=== PATIENT | male | born 1960 | race Caucasian/White ===

== ENCOUNTER 2016-06-12 21:53 | Observation (INO) ==
[2016-06-12] MEDS ORDERED: *HR* HYDROmorphone (PF) 1 MG/ML SYRINGE IVP ONE (23:18)
[2016-06-12] MEDS ORDERED: Ondansetron 4 MG/2 ML VIAL IVP ONE (23:18)
[2016-06-12 23:44] LABS: Eosinophils % 0.3 %; Hematocrit 40.5 % (37.5-50.1); Hemoglobin 14.2 g/dL (12.9-16.9); Immature Granulocytes % 0.3 % (0-4); Immature Platelets 1.2 % (1.1-6.1); Lymphocytes # 0.3 K/mcL (0.6-4.6); Lymphocytes % 5.4 %; Mean Corpuscular HGB Conc 35.1 g/dL (31.6-35.5); Mean Corpuscular Hemoglobin 29.8 pg (28.0-33.3); Mean Corpuscular Volume 84.9 fL (83.0-100.0); Mean Platelet Volume 8.5 fL (9.4-12.4); Monocytes # 0.4 K/mcL (0.0-1.3); Monocytes % 5.6 %; Neutrophils # 5.5 K/mcL (1.6-8.9); Platelet Count 203 K/mcL (140-400); Red Blood Count 4.77 M/mcL (4.19-5.50); Red Cell Distribution Width 12.4 % (11.5-14.5); Segmented Neutrophils % 88.4 %
[2016-06-12 23:58] LABS: Alanine Aminotransferase 391 Units/L (0-55); Albumin 4.3 g/dL (3.5-5.0); Albumin/Globulin Ratio 1.5 (1.1-2.2); Alkaline Phosphatase 97 Units/L (38-126); Aspartate Amino Transferase 340 Units/L (5-34); BUN/Creatinine Ratio 12 (6-26); Bilirubin,Direct 1.5 mg/dL (0.0-0.5); Bilirubin,Indirect 0.8 mg/dL (0.0-1.2); Bilirubin,Total 2.3 mg/dL (0.2-1.2); Blood Urea Nitrogen 14 mg/dL (8-26); Calcium 9.3 mg/dL (8.6-10.8); Carbon Dioxide 24 mEq/L (19-29); Chloride 103 mEq/L (98-109); Globulin 2.8 g/dL (2.4-3.5); Glucose 139 mg/dL (70-99); Lipase 28 Units/L (8-78); Osmolality,Calculated 287 (280-300); Potassium 4.1 mEq/L (3.5-4.5); Sodium 137 mEq/L (136-145); Total Protein 7.1 g/dL (6.0-8.3); eGFR For African Americans > 60 (> 60); eGFR For Non-African Americans > 60 (> 60)
[2016-06-13 00:37] LABS: Bilirubin,Urine Small (Negative); Clarity,Urine Cloudy (Clear); Color,Urine Orange (Yellow); Glucose,Urine (UA) Normal (Normal); Ketones,Urine Trace mg/dL (Negative)
[2016-06-13 00:38] LABS: Blood,Urine Large (Negative); Leukocyte Esterase,Urine Trace (Negative); Nitrite,Urine Negative (Negative); PH,Urine 5.5 pH Units (5.0-8.0); Protein,Urine 30 mg/dL (Neg-Trace); Urobilinogen,Urine Normal (Normal)
[2016-06-13 00:57] LABS: Bacteria,Urine None Seen per hpf (None-Few); Hyaline Casts,Urine None Seen per lpf (None-Few); RBC,Urine 15-30 per hpf (0-3); Squamous Epithelial Cell,Urine None Seen per lpf (None-Few); WBC,Urine 0-3 per hpf (0-3)
[2016-06-13] MEDS ORDERED: Piperacillin/Tazobactam 3.375 GM in D5% in Water (Mini-Bag+) 100 ML IVPB ONE (01:32)
--- NOTE | 2016-06-13 01:39 | Emergency Department Note ---
Disposition Clinical Impression: Acute cholecystitis Disposition: Admitted As Inpatient Condition: Good Time of Disposition: 01:46 Abdominal Pain HPI - General Chief Complaint: ED Abdominal Pain Stated Complaint: abd pain Time Seen by Provider: 06/12/16 22:35 Source: patient Mode of arrival: ambulatory Nursing Notes Reviewed: Yes Vital Signs Reviewed: Yes - History of Present Illness HPI Narrative: Patient here for evaluation of abdominal pain that started approximately 7 hours prior to arrival. Patient describes the sensation of distention as well as right upper quadrant pain. Patient states that he has never had anything like this before. Was recently seen by primary care and placed on ranitidine because he had been having GI issues. Patient says that he has known gallstones but has never had any issues with them before. Pain Scale: 9 - Related Data Home Medications Medication Instructions Recorded Confirmed Levothyroxine Sodium [Levoxyl] 150 mcg PO DAILY 06/12/16 06/12/16 Ranitidine HCl [Zantac] 150 mg PO BID 06/12/16 06/12/16 Allergies Allergy/AdvReac Type Severity Reaction Status Date / Time No Known Allergies Allergy Verified 06/12/16 22:21 All systems ED: reviewed and negative except as stated. Constitutional: Denies: fever, chills, weakness Cardiovascular: Denies: chest pain Gastrointestinal: Reports: abdominal pain, nausea. Denies: vomiting Abdominal Pain PMH - Past Medical History Medical history: Reports: GERD, thyroid disease Male Surgical History: Reports: no surgical history - Social History Smoking status: Never smoker Alcohol use: Reports: none Drug use: Reports: none Physical Exam - General Limitations: no limitations General appearance: alert - Head Head exam: atraumatic, normocephalic, normal inspection - Eye Eye exam: Present: normal appearance - ENT ENT exam: normal exam, normal oropharynx - Neck Neck exam: Present: normal inspection - Chest Chest inspection: Present: normal inspection, symmetric chest wall rise - Respiratory Respiratory exam: Present: normal lung sounds bilaterally. Absent: respiratory distress, wheezes - Cardiovascular Cardiovascular exam: Present: regular rate, normal rhythm - Abdominal Exam Abdominal exam: Present: tenderness, distention, hypoactive bowel sounds Abdominal tenderness: Present: RUQ, moderate - Extremities Exam Extremities exam: Present: normal inspection. Absent: tenderness - Back Exam Back exam: Present: normal inspection - Neurological Exam Neurological exam: Present: alert, oriented X3 - Psychiatric Psychiatric exam: Present: normal affect, normal mood - Skin Skin exam: Present: warm, dry, intact Course - Reevaluation(s) Reevaluation #1: Patient with elevated liver enzymes as well as bilirubin. CT scan consistent with acute cholecystitis. There is concern for choledocholithiasis versus adjacent calcifications. No dilation of the CBD. - Consultations Consultation #1: Discussed with Dr. Farmer. Patient accepted for admission. Vital Signs Temperature 98.1 F 06/12/16 22:21 Pulse Rate 76 06/12/16 22:21 Respiratory Rate 18 06/12/16 22:21 Blood Pressure 127/77 06/12/16 22:21 O2 Sat by Pulse Oximetry 99 06/12/16 22:21 Temperature 98.1 F 06/12/16 22:21 Pulse Rate 76 06/12/16 22:21 Respiratory Rate 18 06/13/16 04:00 Blood Pressure 113/69 06/13/16 04:00 O2 Sat by Pulse Oximetry 100 06/13/16 04:33 Oxygen Delivery Oxygen Delivery Room Air Abdominal Pain - Lab Data Result diagrams: 06/12/16 23:38 06/12/16 23:38 Lab Results 06/12/16 06/12/16 06/12/16 Range/Units 23:38 23:38 23:40 WBC 6.2 (4.3-11.1) K/mcL RBC 4.77 (4.19-5.50) M/mcL Hgb 14.2 (12.9-16.9) g/dL Hct 40.5 (37.5-50.1) % MCV 84.9 (83.0-100.0) fL MCH 29.8 (28.0-33.3) pg MCHC 35.1 (31.6-35.5) g/dL RDW 12.4 (11.5-14.5) % Plt Count 203 (140-400) K/mcL MPV 8.5 L (9.4-12.4) fL Immature Gran % 0.3 (0-4) % Seg Neutrophils % 88.4 % Lymphocytes % 5.4 % Monocytes % 5.6 % Eosinophils % 0.3 % Basophils % 0.0 % Neutrophils # 5.5 (1.6-8.9) K/mcL Lymphocytes # 0.3 L (0.6-4.6) K/mcL Monocytes # 0.4 (0.0-1.3) K/mcL Eosinophils # 0.0 (0.0-0.6) K/mcL Basophils # 0.0 (0.0-0.2) K/mcL Immature Plt Fraction 1.2 (1.1-6.1) % Sodium 137 (136-145) mEq/L Potassium 4.1 (3.5-4.5) mEq/L Chloride 103 (98-109) mEq/L Carbon Dioxide 24 (19-29) mEq/L BUN 14 (8-26) mg/dL Creatinine 1.13 (0.72-1.25) mg/dL Est GFR ( Amer) > 60 (> 60) Est GFR (Non-Af Amer) > 60 (> 60) BUN/Creatinine Ratio 12 (6-26) Glucose 139 H (70-99) mg/dL Calculated Osmolality 287 (280-300) Calcium 9.3 (8.6-10.8) mg/dL Total Bilirubin 2.3 H (0.2-1.2) mg/dL Direct Bilirubin 1.5 H (0.0-0.5) mg/dL Indirect Bilirubin 0.8 (0.0-1.2) mg/dL AST 340 H (5-34) Units/L ALT 391 H (0-55) Units/L Alkaline Phosphatase 97 (38-126) Units/L Serum Total Protein 7.1 (6.0-8.3) g/dL Albumin 4.3 (3.5-5.0) g/dL Globulin 2.8 (2.4-3.5) g/dL Albumin/Globulin Ratio 1.5 (1.1-2.2) Lipase 28 (8-78) Units/L Urine Color [place] A (Yellow) Urine Clarity Cloudy A (Clear) Urine pH 5.5 (5.0-8.0) pH Units Ur Specific [place] 1.030 H (1.010-1.025) Urine Protein 30 H (Neg-Trace) mg/dL Urine Glucose (UA) Normal (Normal) mg/dL Urine Ketones Trace H (Negative) mg/dL Urine Blood Large H (Negative) Urine Nitrite Negative (Negative) Urine Bilirubin Small H (Negative) Urine Urobilinogen Normal (Normal) mg/dL Ur Leukocyte Esterase Trace H (Negative) Urine Microscopic RBC 15-30 H (0-3) per hpf Urine Microscopic WBC 0-3 (0-3) per hpf Ur Squamous Epith Cells None Seen (None-Few) per lpf Urine Bacteria None Seen (None-Few) per hpf Hyaline Casts None Seen (None-Few) per lpf Ur Culture Indicated? YES A (NO) Attestation Statement - Attestation Attestation: For this encounter, I have reviewed the resident, SWITCHBOX ASSEMBLER, or PA documentation, treatment plan, and medical decision making; and I have had face to face time with this patient. 55-year-old male presents with concerns of right upper quadrant pain. Patient states he has a history of similar symptoms over the past 2-3 months. Patient notices that the pain is worse after fatty meals. Patient has been following his primary care provider up until this point who recommended refraining from fatty meals. Patient had [place] toast and helton tonight prior to the onset of this symptoms. Patient states his symptoms have been significantly worse than they have been over the past few months. Patient denies fever, diarrhea, rash, chest pain, shortness of breath. CT of the abdomen shows evidence of acute cholecystitis. Patient has elevation of his LFTs. Patient admitted to the general surgeon for continuation of his care. Patient comfortable with the plan for admission to hospital. Pt pain was controlled prior to leaving the emergency department.
[2016-06-13] MEDS ORDERED: Naloxone 0.4 MG/ML INJ IVP PRN (04:10)
[2016-06-13] MEDS ORDERED: Ondansetron 4 MG/2 ML VIAL IVP PRN (04:10)
[2016-06-13] MEDS ORDERED: *HR* Promethazine 25 MG/ML VIAL IVP PRN (04:10)
[2016-06-13] MEDS ORDERED: *HR* Morphine 2 MG/ML SYRINGE IVP PRN (04:10)
[2016-06-13] MEDS ORDERED: *HR* Metoprolol 5 MG/5 ML VIAL IVP PRN (04:10)
[2016-06-13 08:04] LABS: Alanine Aminotransferase 633 Units/L (0-55); Albumin 3.8 g/dL (3.5-5.0); Albumin/Globulin Ratio 1.4 (1.1-2.2); Alkaline Phosphatase 105 Units/L (38-126); Aspartate Amino Transferase 507 Units/L (5-34); BUN/Creatinine Ratio 14 (6-26); Bilirubin,Direct 1.4 mg/dL (0.0-0.5); Bilirubin,Indirect 1.4 mg/dL (0.0-1.2); Bilirubin,Total 2.8 mg/dL (0.2-1.2); Blood Urea Nitrogen 12 mg/dL (8-26); Calcium 8.7 mg/dL (8.6-10.8); Carbon Dioxide 22 mEq/L (19-29); Chloride 105 mEq/L (98-109); Globulin 2.7 g/dL (2.4-3.5); Glucose 110 mg/dL (70-99); Osmolality,Calculated 290 (280-300); Potassium 4.3 mEq/L (3.5-4.5); Sodium 140 mEq/L (136-145); Total Protein 6.5 g/dL (6.0-8.3); eGFR For African Americans > 60 (> 60); eGFR For Non-African Americans > 60 (> 60)
[2016-06-13] MEDS: ceFAZolin 2,000 MG in D5% in Water 100 ML IVPB SCH ×2 (08:14→16:40)
[2016-06-13] MEDS: 0.9 % Sodium Chloride 1,000 ML IVC SCH ×2 (08:18→16:18)
[2016-06-13] MEDS ORDERED: Ketorolac 15 MG/ML VIAL IVP ONE (08:19)
[2016-06-13 09:01] LABS: Basophils % 0.2 %; Eosinophils # 0.1 K/mcL (0.0-0.6); Eosinophils % 0.9 %; Hemoglobin 13.6 g/dL (12.9-16.9); Immature Granulocytes % 0.2 % (0-4); Immature Platelets 1.4 % (1.1-6.1); Lymphocytes # 0.7 K/mcL (0.6-4.6); Mean Corpuscular HGB Conc 34.9 g/dL (31.6-35.5); Mean Corpuscular Hemoglobin 29.5 pg (28.0-33.3); Mean Corpuscular Volume 84.6 fL (83.0-100.0); Mean Platelet Volume 8.5 fL (9.4-12.4); Monocytes # 0.4 K/mcL (0.0-1.3); Monocytes % 8.3 %; Neutrophils # 4.1 K/mcL (1.6-8.9); Platelet Count 200 K/mcL (140-400); Red Blood Count 4.61 M/mcL (4.19-5.50); Red Cell Distribution Width 12.6 % (11.5-14.5); Segmented Neutrophils % 77.4 %
--- NOTE | 2016-06-13 09:14 | General Surg History&Physical ---
<Cortney Goldberg - Last Filed: 06/13/16 13:27> Date of Encounter: 06/13/16 Time of Encounter: 08:45 Assessment and Plan (1) Acute cholecystitis Current Visit: Yes Status: Acute The assessment and plan as outlined above was discussed with the patient and/or family members who expressed understanding and agreement. All questions were answered. NPO with IV fluids IV antibiotics- Ancef Supportive care/pain control Incentive Spirometer every 1 hour while awake Ambulate hallways MRCP today am labs (2) Hyperbilirubinemia Current Visit: Yes Status: Acute The assessment and plan as outlined above was discussed with the patient and/or family members who expressed understanding and agreement. All questions were answered. MRCP today am labs consult gastroenterology (3) Elevated liver enzymes Current Visit: Yes Status: Acute The assessment and plan as outlined above was discussed with the patient and/or family members who expressed understanding and agreement. All questions were answered. Hepatitis panel pending MRCP today am labs consult gastroenterology (4) GERD (gastroesophageal reflux disease) Current Visit: Yes Status: Chronic The assessment and plan as outlined above was discussed with the patient and/or family members who expressed understanding and agreement. All questions were answered. PPI therapy daily Qualifiers: Esophagitis presence: esophagitis presence not specified Qualified Code(s) : K21.9 - Gastro-esophageal reflux disease without esophagitis (5) Hypothyroidism Current Visit: Yes Status: Chronic The assessment and plan as outlined above was discussed with the patient and/or family members who expressed understanding and agreement. All questions were answered. Continue daily synthroid Qualifiers: Hypothyroidism type: unspecified Qualified Code(s): E03.9 - Hypothyroidism , unspecified (6) Kidney stone Current Visit: Yes Status: Acute The assessment and plan as outlined above was discussed with the patient and/or family members who expressed understanding and agreement. All questions were answered. Patient states that he passed a kidney stone this morning Urine culture pending (7) DVT prophylaxis Current Visit: Yes Status: Acute The assessment and plan as outlined above was discussed with the patient and/or family members who expressed understanding and agreement. All questions were answered. EPCDs to bilateral lower extremities for DVT prophylaxis Ambulate hallways TID History of Present Illness Chief complaint: Epigastric and RUQ pain HPI: Mr. Zeng is a 55 year old male who presented to the ED with complaints of epigastric and RUQ abdominal pain. He states that he had sudden onset yesterday. Denies any precipitating factors. He states that the pain was constant. He has never experienced pain like this in the past. He did feel bloated. He has had nausea and 1 episode of vomiting this morning. Vomitus was bilious. Admits increased heartburn symptoms. Admits diarrhea over the past 24 hours without melena or hematochezia. Denies shortness of breath of chest pains. States that his urine has been darker than normal. He states that he did pass a kidney stone this morning. Denies fevers/chills. Past Med Surg Social Fam HX - Past Medical History Source: patient Medical history: GERD, thyroid disease (hypothyroidism) Psychiatric history: no psych history - Past Surgical History Surgical History: other (benign cyst removed from back) - Social History Smoking Status: Never smoker Smokeless Tobacco Status: No Alcohol use: none Drug use: none Current living situation: Home - Independent Activity Level: Independent ambulation - Family History Father Name: REJI ZENG Age: 88 Living Status: Still Living Hx Family Cardiac Disorders: No Hx Family Respiratory Disorders: No Hx Family Cancer: No Hx Family GI Disorders: No Hx Family Genitourinary Disorders: No Hx Family Endocrine Disorder: No Hx Family Musculoskeletal Disorders: No Hx Family Neuromuscular Disorders: No Hx Family Neurologic Disorders: Yes (Alzheimer's dementia) Hx Family HEENT Disorders: No Hx Family Autoimmune Disorders: No Hx Family Reproductive Disorders: No Hx Family Psychosocial Disorders: No Hx Family Medical Disorders: No Mother Living Status: Still Living Medications and Allergies Levothyroxine Sodium [Levoxyl] 150 mcg PO DAILY 06/12/16 [History] Ranitidine HCl [Zantac] 150 mg PO BID 06/12/16 [History] Allergies No Known Allergies Allergy (Verified 06/13/16 07:47) Review of Systems All systems PM: reviewed and no additional remarkable complaints except as stated (in the HPI) All systems PM: A 10-system review of systems was performed and is negative for pertinent findings except as documented above in the HPI. General Surgery Exam Initial Vital Signs Temp Pulse Resp BP Pulse Ox 98.1 F 76 18 127/77 99 06/12/16 22:21 06/12/16 22:21 06/12/16 22:21 06/12/16 22:21 06/12/16 22:21 - General physical appearance well developed, well nourished, moderate distress - Eyes PERRL, normal ocular movement - ENT normal mucosa, atraumatic, normocephalic - Neck trachea midline - Respiratory normal expansion, normal respiratory effort, clear to auscultation - Cardiovascular Cardiovascular exam: Present: RRR, 15, 16 - Abdomen Abdomen general surgery: Present: bowel sounds present, soft, tender Abdominal Tenderness: Present: epigastic, RUQ - Integumentary Integumentary general surgery: Present: warm and dry - Neurologic Present: CN 2-12 grossly intact - Musculoskeletal Present: normal gait, normal posture - Psychiatric Psychiatric general surgery: Present: appropriate, oriented to person, oriented to place, oriented to time, speech is normal, memory intact Results - Labs 06/13/16 08:40 06/13/16 06:09 Abnormal lab results MPV 8.5 fL (9.4-12.4) L 06/13/16 08:40 Glucose 110 mg/dL (70-99) H 06/13/16 06:09 Total Bilirubin 2.8 mg/dL (0.2-1.2) H 06/13/16 06:09 Direct Bilirubin 1.4 mg/dL (0.0-0.5) H 06/13/16 06:09 Indirect Bilirubin 1.4 mg/dL (0.0-1.2) H 06/13/16 06:09 AST 507 Units/L (5-34) H 06/13/16 06:09 ALT 633 Units/L (0-55) H 06/13/16 06:09 Urine Color [employer] (Yellow) A 06/12/16 23:40 Urine Clarity Cloudy (Clear) A 06/12/16 23:40 Ur Specific [place] 1.030 (1.010-1.025) H 06/12/16 23:40 Urine Protein 30 mg/dL (Neg-Trace) H 06/12/16 23:40 Urine Ketones Trace mg/dL (Negative) H 06/12/16 23:40 Urine Blood Large (Negative) H 06/12/16 23:40 Urine Bilirubin Small (Negative) H 06/12/16 23:40 Ur Leukocyte Esterase Trace (Negative) H 06/12/16 23:40 Urine Microscopic RBC 15-30 per hpf (0-3) H 06/12/16 23:40 Ur Culture Indicated? YES (NO) A 06/12/16 23:40 Diabetes panel 06/13/16 Range/Units 06:09 Sodium 140 (136-145) mEq/L Potassium 4.3 (3.5-4.5) mEq/L Chloride 105 (98-109) mEq/L Carbon Dioxide 22 (19-29) mEq/L BUN 12 (8-26) mg/dL Creatinine 0.83 (0.72-1.25) mg/dL Glucose 110 H (70-99) mg/dL Calcium 8.7 (8.6-10.8) mg/dL AST 507 H (5-34) Units/L ALT 633 H (0-55) Units/L Alkaline Phosphatase 105 (38-126) Units/L Albumin 3.8 (3.5-5.0) g/dL Calcium panel 06/13/16 Range/Units 06:09 Calcium 8.7 (8.6-10.8) mg/dL Albumin 3.8 (3.5-5.0) g/dL Pituitary panel 06/13/16 Range/Units 06:09 Sodium 140 (136-145) mEq/L Potassium 4.3 (3.5-4.5) mEq/L Chloride 105 (98-109) mEq/L Carbon Dioxide 22 (19-29) mEq/L BUN 12 (8-26) mg/dL Creatinine 0.83 (0.72-1.25) mg/dL Glucose 110 H (70-99) mg/dL Calcium 8.7 (8.6-10.8) mg/dL Adrenal panel 06/13/16 Range/Units 06:09 Sodium 140 (136-145) mEq/L Potassium 4.3 (3.5-4.5) mEq/L Chloride 105 (98-109) mEq/L Carbon Dioxide 22 (19-29) mEq/L BUN 12 (8-26) mg/dL Creatinine 0.83 (0.72-1.25) mg/dL Glucose 110 H (70-99) mg/dL Calcium 8.7 (8.6-10.8) mg/dL Total Bilirubin 2.8 H (0.2-1.2) mg/dL AST 507 H (5-34) Units/L ALT 633 H (0-55) Units/L Alkaline Phosphatase 105 (38-126) Units/L Albumin 3.8 (3.5-5.0) g/dL All other labs normal. - Imaging CT scan - abdomen: report reviewed CT scan - pelvis: report reviewed Additional studies: Abdomen/Pelvis CT 06/13/16 23:21 IMPRESSION: 1. Cholelithiasis with findings suggesting acute cholecystitis. There is either choledocholithiasis or calcifications have developed adjacent to the common duct. There is no common duct dilation. 2. Tiny stone in the left kidney without hydronephrosis. There is also a small stone in the urinary bladder. D/ / Jerry Montoya MD / Jerry Montoya MD Interpreting Provider: Jerry Montoya MD - Attending Attestation I examined this patient and my medical decision-making was reviewed with the CARDIOPULMONARY TECHNICIAN/PA/Advanced Practice Nurse/Resident Physician. I agree with the documented findings, disposition and treatment plan as described except to the extent set forth below. <Raissa Farmer - Last Filed: 06/15/16 16:36> Time of Encounter: 17:35 Assessment and Plan (1) Elevated liver enzymes Current Visit: Yes Status: Acute The assessment and plan as outlined above was discussed with the patient and/or family members who expressed understanding and agreement. All questions were answered. (2) GERD (gastroesophageal reflux disease) Current Visit: Yes Status: Chronic The assessment and plan as outlined above was discussed with the patient and/or family members who expressed understanding and agreement. All questions were answered. Qualifiers: Esophagitis presence: esophagitis presence not specified Qualified Code(s) : K21.9 - Gastro-esophageal reflux disease without esophagitis (3) Hypothyroidism Current Visit: Yes Status: Chronic The assessment and plan as outlined above was discussed with the patient and/or family members who expressed understanding and agreement. All questions were answered. Qualifiers: Hypothyroidism type: unspecified Qualified Code(s): E03.9 - Hypothyroidism , unspecified (4) Acute cholecystitis Current Visit: Yes Status: Resolved The assessment and plan as outlined above was discussed with the patient and/or family members who expressed understanding and agreement. All questions were answered. (5) Kidney stone Current Visit: Yes Status: Resolved The assessment and plan as outlined above was discussed with the patient and/or family members who expressed understanding and agreement. All questions were answered. History of Present Illness HPI: Mr. Zeng is a 55 year old male with less than 24 hrs abdominal pain in epigastric and RUQ area. The pain was sharp without radiation. He had N/V x 1. He has had diarrhea as well. He has never had similar symptoms. Some increase in his gerd symptoms Past Med Surg Social Fam HX - Past Medical History Source: patient Review of Systems All systems PM: reviewed and no additional remarkable complaints except as stated All systems PM: A 10-system review of systems was performed and is negative for pertinent findings except as documented above in the HPI. General Surgery Exam Initial Vital Signs Temp Pulse Resp BP Pulse Ox 98.1 F 76 18 127/77 99 06/12/16 22:21 06/12/16 22:21 06/12/16 22:21 06/12/16 22:21 06/12/16 22:21 - General physical appearance well nourished, no distress, no pain - Eyes PERRL, normal ocular movement - ENT normal mucosa, normocephalic - Neck trachea midline - Respiratory normal expansion, clear to auscultation - Cardiovascular Cardiovascular exam: Present: RRR - Abdomen Abdomen general surgery: Present: bowel sounds present, soft, tender Abdominal Tenderness: Present: epigastic, RUQ - Musculoskeletal Present: normal gait, normal posture - Psychiatric Psychiatric general surgery: Present: A&Ox3, speech is normal Results - Labs 06/15/16 04:01 06/15/16 04:01 Abnormal lab results MPV 9.2 fL (9.4-12.4) L 06/15/16 04:01 POC Glucose 122 (58-89) H 06/15/16 11:15 Calcium 8.4 mg/dL (8.6-10.8) L 06/15/16 04:01 Total Bilirubin 3.2 mg/dL (0.2-1.2) H D 06/15/16 04:01 Direct Bilirubin 2.0 mg/dL (0.0-0.5) H 06/15/16 04:01 AST 182 Units/L (5-34) H 06/15/16 04:01 ALT 467 Units/L (0-55) H 06/15/16 04:01 Alkaline Phosphatase 165 Units/L (38-126) H 06/15/16 04:01 Albumin 3.4 g/dL (3.5-5.0) L 06/15/16 04:01 Urine Color [employer] (Yellow) A 06/12/16 23:40 Urine Clarity Cloudy (Clear) A 06/12/16 23:40 Ur Specific [place] 1.030 (1.010-1.025) H 06/12/16 23:40 Urine Protein 30 mg/dL (Neg-Trace) H 06/12/16 23:40 Urine Ketones Trace mg/dL (Negative) H 06/12/16 23:40 Urine Blood Large (Negative) H 06/12/16 23:40 Urine Bilirubin Small (Negative) H 06/12/16 23:40 Ur Leukocyte Esterase Trace (Negative) H 06/12/16 23:40 Urine Microscopic RBC 15-30 per hpf (0-3) H 06/12/16 23:40 Ur Culture Indicated? YES (NO) A 06/12/16 23:40 Diabetes panel 06/15/16 06/15/16 Range/Units 04:01 04:01 Sodium 141 (136-145) mEq/L Potassium 3.8 (3.5-4.5) mEq/L Chloride 108 (98-109) mEq/L Carbon Dioxide 23 (19-29) mEq/L BUN 11 (8-26) mg/dL Creatinine 0.78 (0.72-1.25) mg/dL Glucose 80 (70-99) mg/dL Calcium 8.4 L (8.6-10.8) mg/dL AST 182 H (5-34) Units/L ALT 467 H (0-55) Units/L Alkaline Phosphatase 165 H (38-126) Units/L Albumin 3.4 L (3.5-5.0) g/dL Calcium panel 06/15/16 06/15/16 Range/Units 04:01 04:01 Calcium 8.4 L (8.6-10.8) mg/dL Albumin 3.4 L (3.5-5.0) g/dL Pituitary panel 06/15/16 Range/Units 04:01 Sodium 141 (136-145) mEq/L Potassium 3.8 (3.5-4.5) mEq/L Chloride 108 (98-109) mEq/L Carbon Dioxide 23 (19-29) mEq/L BUN 11 (8-26) mg/dL Creatinine 0.78 (0.72-1.25) mg/dL Glucose 80 (70-99) mg/dL Calcium 8.4 L (8.6-10.8) mg/dL Adrenal panel 06/15/16 06/15/16 Range/Units 04:01 04:01 Sodium 141 (136-145) mEq/L Potassium 3.8 (3.5-4.5) mEq/L Chloride 108 (98-109) mEq/L Carbon Dioxide 23 (19-29) mEq/L BUN 11 (8-26) mg/dL Creatinine 0.78 (0.72-1.25) mg/dL Glucose 80 (70-99) mg/dL Calcium 8.4 L (8.6-10.8) mg/dL Total Bilirubin 3.2 H D (0.2-1.2) mg/dL AST 182 H (5-34) Units/L ALT 467 H (0-55) Units/L Alkaline Phosphatase 165 H (38-126) Units/L Albumin 3.4 L (3.5-5.0) g/dL All other labs normal. - Imaging CT scan - abdomen: report reviewed, image reviewed CT scan - pelvis: report reviewed, image reviewed
[2016-06-13 10:59] LABS: Hepatitis B Surface Antigen Nonreactive (Nonreactive)
[2016-06-14] MEDS: 0.9 % Sodium Chloride 1,000 ML IVC SCH ×2 (01:31→10:22)
[2016-06-14 05:44] LABS: Basophils % 0.3 %; Eosinophils # 0.1 K/mcL (0.0-0.6); Eosinophils % 2.3 %; Hemoglobin 12.1 g/dL (12.9-16.9); Immature Granulocytes % 0.3 % (0-4); Lymphocytes # 0.7 K/mcL (0.6-4.6); Lymphocytes % 18.3 %; Mean Corpuscular HGB Conc 34.6 g/dL (31.6-35.5); Mean Corpuscular Hemoglobin 29.8 pg (28.0-33.3); Mean Corpuscular Volume 86.2 fL (83.0-100.0); Mean Platelet Volume 9.1 fL (9.4-12.4); Monocytes # 0.4 K/mcL (0.0-1.3); Monocytes % 8.9 %; Neutrophils # 2.8 K/mcL (1.6-8.9); Platelet Count 149 K/mcL (140-400); Red Blood Count 4.06 M/mcL (4.19-5.50); Red Cell Distribution Width 12.6 % (11.5-14.5); Segmented Neutrophils % 69.9 %
[2016-06-14 06:01] LABS: Alanine Aminotransferase 549 Units/L (0-55); Albumin 3.2 g/dL (3.5-5.0); Albumin/Globulin Ratio 1.3 (1.1-2.2); Alkaline Phosphatase 129 Units/L (38-126); Aspartate Amino Transferase 240 Units/L (5-34); BUN/Creatinine Ratio 11 (6-26); Bilirubin,Direct 1.1 mg/dL (0.0-0.5); Bilirubin,Total 2.1 mg/dL (0.2-1.2); Blood Urea Nitrogen 9 mg/dL (8-26); Calcium 8.1 mg/dL (8.6-10.8); Carbon Dioxide 26 mEq/L (19-29); Chloride 109 mEq/L (98-109); Globulin 2.5 g/dL (2.4-3.5); Glucose 94 mg/dL (70-99); Osmolality,Calculated 292 (280-300); Potassium 3.9 mEq/L (3.5-4.5); Sodium 142 mEq/L (136-145); Total Protein 5.7 g/dL (6.0-8.3); eGFR For African Americans > 60 (> 60); eGFR For Non-African Americans > 60 (> 60)
--- NOTE | 2016-06-14 11:16 | Gastroenterology Consult Note ---
<ArellanoElpidio Treviño - Last Filed: 06/14/16 11:13> Date of Encounter: 06/14/16 Time of Encounter: 10:10 - Assessment and plan (1) Acute cholecystitis Current Visit: Yes Status: Acute Assessment and plan: Recommend cholecystectomy and IOC. If IOC abnormal will consider ERCP. (2) Elevated liver enzymes Current Visit: Yes Status: Acute Assessment and plan: MRCP with cholelithiasis or ductal dilation or filling defect. Gallbladder ultrasound with cholelithiasis with pericholecystic fluid. CT A/P with cholelithiasis suggestive of cholecystitis and possible choledocholithiasis. Recommend cholecystectomy with IOC. If IOC is abnormal we will consider ERCP. Hepatitis profile negative for hepatitis B, remaining panel pending. Continue to monitor her hepatic panel. (3) Hyperbilirubinemia Current Visit: Yes Status: Acute (4) GERD (gastroesophageal reflux disease) Current Visit: Yes Status: Chronic Assessment and plan: Continue PPI. Qualifiers: Esophagitis presence: esophagitis presence not specified Qualified Code(s) : K21.9 - Gastro-esophageal reflux disease without esophagitis - Time Spent With Patient Total time spent is greater than 50% in coordination of care (as documented) at patient's floor/unit and/or counseling patient: GI History of Present Illness - Data of Consult Patient: new to practice Consult date: 06/14/16 Requesting Physician: Raissa Farmer MD - Consult Narrative Reason for consult: Elevated LFTs, hyperbilirubinemia History of present illness: Mr. Zeng is a 55 year old male with PMHx of GERD and hypothyroidism who presented to the ED with c/o epigastric and RUQ pain that started the day before admission. He reports nausea and one episode of bilious vomiting the day of admission after eating [place]. He admits to diarrhea with no melena or hematochezia. No fever or chills. Denies IVDU, blood transfusions, or tattoos. Procedures: None NSAIDs: None Anticoagulation: None Past Med Surg Social Fam HX - Past Medical History Medical history: GERD, thyroid disease (hypothyroidism) Psychiatric history: no psych history - Past Surgical History Surgical History: other (benign cyst removed from back) - Social History Smoking Status: Never smoker Smokeless Tobacco Status: No Alcohol use: none Drug use: none - Family History Father Name: REJI ZENG Age: 88 Living Status: Still Living Hx Family Cardiac Disorders: No Hx Family Respiratory Disorders: No Hx Family Cancer: No Hx Family GI Disorders: No Hx Family Genitourinary Disorders: No Hx Family Endocrine Disorder: No Hx Family Musculoskeletal Disorders: No Hx Family Neuromuscular Disorders: No Hx Family Neurologic Disorders: Yes (Alzheimer's dementia) Hx Family HEENT Disorders: No Hx Family Autoimmune Disorders: No Hx Family Reproductive Disorders: No Hx Family Psychosocial Disorders: No Hx Family Medical Disorders: No Mother Living Status: Still Living - Gastrointestinal Gastrointestinal: Present: as per HPI - Constitutional Constitutional: as per HPI - EENT Eyes: as per HPI Ears: Present: as per HPI Nose, mouth and throat: Present: as per HPI - Cardiovascular Cardiovascular ROS: Present: as per HPI - Respiratory Respiratory IM: Present: as per HPI - Genitourinary Genitourinary: Absent: change in color, Urinary frequency - Neurological ROS Neurological GI: Present: as per HPI - Hematologic/Lymphatic Hematologic/Lymphatic pediatric: Present: as per HPI - Musculoskeletal Musculoskeletal ROS GI: Present: as per HPI - Integumentary Integumentary GI: Present: as per HPI - Psychiatric ROS Psychiatric GI: Present: as per HPI - Endocrine Endocrine IM: Present: as per HPI - Constitutional Vitals: Temp Pulse Resp BP Pulse Ox 98.4 F 82 16 102/64 96 06/14/16 10:32 06/14/16 10:32 06/14/16 10:32 06/14/16 10:32 06/14/16 10:32 General appearance: Present: cooperative, A&O X 3, no acute distress, answers questions appropriately - Head Head exam: Present: atraumatic, normocephalic - Eye Eye exam: Present: normal appearance, sclera anicteric - ENT ENT exam: Present: mucous membranes dry - Neck Neck exam general surgery: Present: normal inspection, trachea midline - Respiratory Respiratory exam: Present: CTAB. Absent: rales, rhonchi - Cardiovascular Cardiovascular exam: Present: RRR, +S1, +S2 - GI/Abdominal GI/Abdominal exam: Present: soft, tenderness (midepigastric and RUQ), no peritoneal signs. Absent: distended, firm, guarding - Rectal Rectal exam: Present: deferred - Extremities Exam Extremities exam: Present: warm - Neurological Exam Neurological exam: Present: no focal deficits - Psychiatric Psychiatric exam: Present: normal affect, normal mood - Skin Skin exam: Present: dry, intact, normal color, warm Results - Labs CBC & Chem 7: 06/14/16 04:36 06/14/16 04:36 Labs: Last Result Calcium 8.1 mg/dL (8.6-10.8) L 06/14/16 04:36 Entire Visit Hgb 12.1 g/dL (12.9-16.9) L D 06/14/16 04:36 Hct 35.0 % (37.5-50.1) L 06/14/16 04:36 Total Bilirubin 2.1 mg/dL (0.2-1.2) H 06/14/16 04:36 AST 240 Units/L (5-34) H 06/14/16 04:36 ALT 549 Units/L (0-55) H 06/14/16 04:36 Lipase 28 Units/L (8-78) 06/12/16 23:38 - Impressions Impressions Abdomen MRI 06/13/16 08:06 IMPRESSION: 1. Cholelithiasis with mild pericholecystic edema. If there is concern for acute cholecystitis, suggest further evaluation with HIDA scan. 2. No intrahepatic or extrahepatic biliary ductal dilatation. No definite intraductal filling defect. Linear artifact along the distal common duct corresponds to calcification on CT which may be along the bile duct. D/ / 06/13/2016 11:00:26 Jeremías Cowart MD / anyaeli Interpreting Provider: Jeremías Cowart MD Gallbladder Ultrasound 06/13/16 14:21 IMPRESSION: Cholelithiasis with pericholecystic fluid. Absent sonographic Sterling sign. If there is continued clinical concern, hepatobiliary scan is recommended. D/ / 06/13/2016 15:30:47 Phillip Alvarado MD / [email or web address] Interpreting Provider: Phillip Alvarado MD Consult Discharge Plan - Plan Referrals: Feliberto Zhang DO [Primary Care Provider] - <Daisha Tenorio - Last Filed: 06/14/16 14:17> Date of Encounter: 06/14/16 Time of Encounter: 14:00 - Time Spent With Patient Total time spent is greater than 50% in coordination of care (as documented) at patient's floor/unit and/or counseling patient: GI History of Present Illness - Data of Consult Requesting Physician: Raissa Farmer MD - Consult Narrative History of present illness: Mr. Zeng is a 55 year old male - Constitutional Vitals: Temp Pulse Resp BP Pulse Ox 98.4 F 82 16 102/64 96 06/14/16 10:32 06/14/16 10:32 06/14/16 10:32 06/14/16 10:32 06/14/16 10:32 Results - Labs CBC & Chem 7: 06/14/16 04:36 06/14/16 04:36 Labs: Last Result Calcium 8.1 mg/dL (8.6-10.8) L 06/14/16 04:36 Entire Visit Hgb 12.1 g/dL (12.9-16.9) L D 06/14/16 04:36 Hct 35.0 % (37.5-50.1) L 06/14/16 04:36 Total Bilirubin 2.1 mg/dL (0.2-1.2) H 06/14/16 04:36 AST 240 Units/L (5-34) H 06/14/16 04:36 ALT 549 Units/L (0-55) H 06/14/16 04:36 Lipase 28 Units/L (8-78) 06/12/16 23:38 - Impressions Impressions Abdomen MRI 06/13/16 08:06 IMPRESSION: 1. Cholelithiasis with mild pericholecystic edema. If there is concern for acute cholecystitis, suggest further evaluation with HIDA scan. 2. No intrahepatic or extrahepatic biliary ductal dilatation. No definite intraductal filling defect. Linear artifact along the distal common duct corresponds to calcification on CT which may be along the bile duct. D/ / 06/13/2016 11:00:26 Jeremías Cowart MD / [email or web address] Interpreting Provider: Jeremías Cowart MD Gallbladder Ultrasound 06/13/16 14:21 IMPRESSION: Cholelithiasis with pericholecystic fluid. Absent sonographic Sterling sign. If there is continued clinical concern, hepatobiliary scan is recommended. D/ / 06/13/2016 15:30:47 Phillip Alvarado MD / aster Interpreting Provider: Phillip Alvarado MD - Attending Attestation I examined this patient and my medical decision-making was reviewed with the EXTRA GANG SUPERVISOR/PA/Advanced Practice Nurse/Resident Physician. I agree with the documented findings, disposition and treatment plan as described except to the extent set forth below.
[2016-06-14 12:33] LABS: Hepatitis A Antibody IgM Nonreactive (Nonreactive); Hepatitis B Core IgM Nonreactive (Nonreactive); Hepatitis C Virus Antibody Nonreactive (Nonreactive)
--- NOTE | 2016-06-14 16:21 | Anesthesia Evaluation PreOp ---
Date of Encounter: 06/14/16 Time of Encounter: 17:47 - Past History Planned Operation: Lap Laurita re: Acute cholecysttitis Cardiac History: Denies any Significant Hx Pulmonary History: Denies Any Significant HX BRAKE MECHANIC History: Denies Any Significant HX Other Medical History: Renal (Hx kidney stones), Thyroid (maintained on Synthroid), GERD (maintaiend on Zantac) Anesthesia History: No Prior Anesthetic Complications, Past Anesthesia (back cyst removal), MH (NO FamHx of ) Alcohol Use: none Drug use: none Medications and Allergies Levothyroxine Sodium [Levoxyl] 150 mcg PO DAILY 06/12/16 [History] Ranitidine HCl [Zantac] 150 mg PO BID 06/12/16 [History] Allergies No Known Allergies Allergy (Verified 06/13/16 07:47) - Meds/Allergy Pre-op Review Medications Reviewed: Yes Allergies Reviewed: Yes Beta Blockers on Current Med List: No Anesthesia Results - Labs 06/14/16 04:36 06/14/16 04:36 Laboratory Results Impressions Abdomen MRI 06/13/16 08:06 IMPRESSION: 1. Cholelithiasis with mild pericholecystic edema. If there is concern for acute cholecystitis, suggest further evaluation with HIDA scan. 2. No intrahepatic or extrahepatic biliary ductal dilatation. No definite intraductal filling defect. Linear artifact along the distal common duct corresponds to calcification on CT which may be along the bile duct. D/ / 06/13/2016 11:00:26 Jeremías Cowart MD / [facility] [place] Interpreting Provider: Jeremías Cowart MD Gallbladder Ultrasound 06/13/16 14:21 IMPRESSION: Cholelithiasis with pericholecystic fluid. Absent sonographic Sterling sign. If there is continued clinical concern, hepatobiliary scan is recommended. D/ / 06/13/2016 15:30:47 Phillip Alvarado MD / [facility] Interpreting Provider: Phillip Alvarado MD Abdomen/Pelvis CT 06/13/16 23:21 IMPRESSION: 1. Cholelithiasis with findings suggesting acute cholecystitis. There is either choledocholithiasis or calcifications have developed adjacent to the common duct. There is no common duct dilation. 2. Tiny stone in the left kidney without hydronephrosis. There is also a small stone in the urinary bladder. D/ / Jerry Montoya MD / Jerry Montoya MD Interpreting Provider: Jerry Montoya MD Anesthesia Exam Vital Signs Temp Pulse Resp BP Pulse Ox 06/14/16 15:18 98.8 F 87 16 104/62 96 06/14/16 10:32 98.4 F 82 16 102/64 96 06/14/16 08:00 96 06/14/16 05:45 97.9 F 87 16 99/62 97 06/14/16 03:31 98 F 80 14 151/76 96 06/13/16 21:58 98.1 F 82 14 153/76 95 Intake and Output 06/14/16 06/14/16 06/14/16 07:59 15:59 23:59 Intake Total 821 / 821 479 / 479 Output Total 1300 / 1300 800 / 800 Balance -479 / -479 -321 / -321 Intake: IV Fluids 821 / 821 479 / 479 0.9 % Sodium Chloride 1, 821 / 821 479 / 479 000 ML @ 120 mls/hr IVC . Q8H20M QAMAR Rx#:[id number] Oral 0 / 0 Output: Urine 1300 / 1300 800 / 800 Other: Meal NPO/LUNCH Percent of Meal Consumed 0% # Voids 1 Weight 80.4 kg Blood Glucose* 98 Patient Weight 06/14/16 23:59 Weight 80.4 kg Height: 5'10" Weight: 177# BMi = 25 NPO (# of Hours): MNoc - HEENT Pupil (Motor): Pupils equal, EOMI Mallampati: II Teeth: Normal Oral Opening: Greater than 3 - BRAKE MECHANIC LOC: Oriented BRAKE MECHANIC Motor: Normal RUE, Normal LUE, Normal RLE, Normal LLE, Normal Face BRAKE MECHANIC Sensory: Normal: RUE, LUE, RLE, LLE, Face - Cardiac Rhythm: Regular Murmur: None - Pulmonary Breath Sounds: bilateral Clear Respiratory Effort: Symmetrical Anesthesia Assess/Plan ASA Score: 2 (GERD, Hypothyroidism) Anes Supervising Prov Stmt: Pt seen/evaluated, R&B Discussed, questions answered consent obtained. Kenny Maurice MD
[2016-06-14] MEDS ORDERED: Famotidine 20 MG/2 ML VIAL ONE (17:56)
[2016-06-14] MEDS ORDERED: Metoclopramide 10 MG/2 ML VIAL ONE (17:56)
[2016-06-14] MEDS ORDERED: Acetaminophen IV 1,000 MG/100 ML INFUS..BTL ONE (17:58)
[2016-06-14] MEDS ORDERED: *HR* Midazolam HCl 2 MG/2 ML VIAL ONE (18:11)
[2016-06-14] MEDS ORDERED: *HR* FentaNYL (PF) 100 MCG/2 ML VIAL ONE (18:11)
[2016-06-14] MEDS ORDERED: *HR* Propofol 200 MG/20 ML VIAL IVP ONE (18:11)
[2016-06-14] MEDS ORDERED: Ondansetron 4 MG/2 ML VIAL ONE ×2 (18:13→18:28)
[2016-06-14] MEDS ORDERED: CefOXitin 2,000 MG VIAL IVPB ONE (18:22)
[2016-06-14] MEDS ORDERED: Dexamethasone 4 MG/ML VIAL ONE (18:28)
[2016-06-14] MEDS ORDERED: *HR* Succinylcholine 200 MG/10 ML VIAL IVP ONE (18:33)
[2016-06-14] MEDS ORDERED: Neostigmine Methylsulfate 3 MG/3 ML SYRINGE ONE (18:33)
[2016-06-14] MEDS ORDERED: *HR* Rocuronium Bromide 50 MG/5 ML VIAL ONE (18:34)
[2016-06-14] MEDS ORDERED: *HR* HYDROmorphone 2 MG/ML SYRINGE ONE (18:44)
[2016-06-14] MEDS ORDERED: *HR* HYDROmorphone (PF) 1 MG/ML SYRINGE IVP PRN (18:56)
--- NOTE | 2016-06-14 19:43 | Operative Note ---
Date of procedure: 06/14/16 Pre-op diagnosis: acute cholecystitis Post-op diagnosis: same Procedure: laparoscopic cholecystectomy with cholangiograms Complications: none immediate Anesthesia: GETA, local Local Anesthetics: 0.5% Sensorcaine HCL SubQ (cc) (30) Surgeon: Raissa Farmer Puncher: Tara Lin Estimated blood loss (cc): 10 Specimen: gallbladder Condition: stable Disposition: PACU Procedure in Detail: The patient was brought into the operating suite and placed supine on the operating table. Sign-in was performed and everyone was in agreement. Anesthesia was induced and patient was endotracheally intubated by anesthesia without incident and they also placed an OG tube. The abdomen was prepped and draped in the usual sterile fashion. A timeout was performed again everyone was in agreement. A supraumbilical incision was made through the skin into the subcutaneous tissue with an 11 blade. Towel clamps were placed on either side of the umbilicus for retraction. S retractors were used to dissect down to the anterior abdominal wall linea alba fascia. A Veress needle was placed through this incision and a water drop test confirmed placement and the abdomen was insufflated. The abdomen was entered with a 5 mm 0 degree laparoscope on a 5 mm excel trocar. The area and entry was visualized was no bleeding and no apparent bowel injury. A 5 mm subxiphoid port was placed under direct visualization after first incising the skin with an 11 blade. A right upper quadrant subcostal position midclavicular line 5 mm port was placed under direct visualization after first incising skin with 11 blade. The laparoscope was placed in this and we exchanged the supraumbilical port for a 12 mm port under direct visualization. The last 5 mm port was placed in the right upper quadrant subcostal position anterior axillary line after first incising the skin with an 11 blade. The patient was placed in steep reverse Trendelenburg left side down position. The dome of the gallbladder was grasped and retracted cephalad. Omental adhesions to the body and infundibulum of the gallbladder were taken down bluntly with the [place]. The infundibulum was grasped and retracted laterally. Using the [place] we dissected out the cystic duct and cystic artery. Two 5 mm Hemoclip was placed proximally on the cystic artery and one distally and it was transected with curved scissors. A 5 mm metal Hemoclip was placed proximally on the cystic duct. The cystic duct was partially transected with curved scissors. A stab incision in the right upper quadrant was made with the 11 blade and an angiocatheter was placed into the abdominal wall. The cholangiocatheter was introduced into the partially transected cystic duct with the [place]. A metal 5 mm hemoclip was placed across the proximal cystic duct and the cholangiocatheter. The catheter flushed easily. The patient was placed in neutral position. Cholangiograms were obtained showing contrast up into the left and right intrahepatic ducts down through the common hepatic and common bile duct into the duodenum. The clip on the cholangiocatheter and proximal cystic duct was removed as well as the cholangiocatheter. Three 5 mm hemoclips were placed proximally on the cystic duct and it was transected with curved scissors. The gallbladder was removed off the cystic plate with the Bovie. Any bleeding points were stopped with the Bovie. The gallbladder was placed in a laparoscopic Endo Catch bag and removed via the supraumbilical incision site. The inferior edge of the liver was bluntly retracted cephalad and the cystic plate was copiously irrigated with sterile saline. There was no bleeding or apparent bile leak from the cystic plate and the clips on the cystic artery and duct were intact. All irrigation was suctioned free from the abdomen. All insufflation was suctioned free from the abdomen and the ports removed. The abdominal wall at the supraumbilical incision site was closed with a 0 Vicryl [id number] stitch. 30 mL of 0.5% Marcaine was injected subcutaneously at the 4 port sites. The skin at the three 5 mm port sites were closed with 4-0 Monocryl interrupted subcuticular stitches. The skin at the supraumbilical incision site was closed with a 4-0 Monocryl running subcuticular stitch. Steri-Strips and mastisol were applied to all wounds. The patient was awoken in the operating suite having tolerated the procedure well and were taken to PACU in stable condition after all lap and ensuring counts were correct at the end of the case. 20 cc isovue was used for cholangiograms
--- NOTE | 2016-06-14 20:17 | Anesthesia Evaluation Post Op ---
Date of Encounter: 06/14/16 Time of Encounter: 08:10 - Vital Signs Vital Signs: Vital Signs/O2 Sat, Most Current Temp Pulse Resp BP Pulse Ox 97.6 F 73 16 117/68 99 06/14/16 20:10 06/14/16 20:10 06/14/16 20:10 06/14/16 20:10 06/14/16 20:10 - Lungs Lungs: Clear Ascult./Percussion - Airway Airway: Non-obstructed - Cardiovascular Regular Rate - Mental Status Mental Status: Alert & Oriented, Answers Appropriately - Pain Pain Scale: 0 Pain Scale used: Numeric (1 - 10) - Nausea Vomiting Nausea Vomiting: Not Present - Hydration Hydration: Ice chips, Has not voided - Discharge PostOp Status: Transfer Patient to floor
[2016-06-15 05:16] LABS: Basophils % 0.2 %; Eosinophils % 0.6 %; Hematocrit 37.5 % (37.5-50.1); Hemoglobin 12.9 g/dL (12.9-16.9); Immature Granulocytes % 0.6 % (0-4); Immature Platelets 1.4 % (1.1-6.1); Lymphocytes # 0.9 K/mcL (0.6-4.6); Lymphocytes % 17.7 %; Mean Corpuscular HGB Conc 34.4 g/dL (31.6-35.5); Mean Corpuscular Hemoglobin 30.1 pg (28.0-33.3); Mean Corpuscular Volume 87.4 fL (83.0-100.0); Mean Platelet Volume 9.2 fL (9.4-12.4); Monocytes # 0.5 K/mcL (0.0-1.3); Monocytes % 9.4 %; Neutrophils # 3.5 K/mcL (1.6-8.9); Platelet Count 175 K/mcL (140-400); Red Blood Count 4.29 M/mcL (4.19-5.50); Red Cell Distribution Width 12.8 % (11.5-14.5); Segmented Neutrophils % 71.5 %
[2016-06-15] MEDS: 0.9 % Sodium Chloride 1,000 ML IVC SCH ×3 (05:33→18:53)
[2016-06-15 06:17] LABS: BUN/Creatinine Ratio 14 (6-26); Blood Urea Nitrogen 11 mg/dL (8-26); Calcium 8.4 mg/dL (8.6-10.8); Carbon Dioxide 23 mEq/L (19-29); Chloride 108 mEq/L (98-109); Glucose 80 mg/dL (70-99); Osmolality,Calculated 290 (280-300); Potassium 3.8 mEq/L (3.5-4.5); Sodium 141 mEq/L (136-145); eGFR For African Americans > 60 (> 60); eGFR For Non-African Americans > 60 (> 60)
[2016-06-15 06:38] LABS: Albumin 3.4 g/dL (3.5-5.0); Albumin/Globulin Ratio 1.3 (1.1-2.2); Bilirubin,Indirect 1.2 mg/dL (0.0-1.2); Globulin 2.7 g/dL (2.4-3.5); Total Protein 6.1 g/dL (6.0-8.3)
[2016-06-15 06:40] LABS: Bilirubin,Total 3.2 mg/dL (0.2-1.2)
[2016-06-15] MEDS ORDERED: Ondansetron 4 MG/2 ML VIAL IVP PRN (07:42)
[2016-06-15] MEDS ORDERED: *HR* Metoprolol 5 MG/5 ML VIAL IVP PRN (07:42)
[2016-06-15] MEDS ORDERED: *HR* OxyCODONE/APAP 5/325 TABLET PO PRN (07:42)
[2016-06-15] MEDS ORDERED: *HR* Promethazine 25 MG/ML VIAL IVP PRN (07:42)
[2016-06-15] MEDS ORDERED: *HR* Morphine 2 MG/ML SYRINGE IVP PRN (07:42)
[2016-06-15] MEDS ORDERED: Naloxone 0.4 MG/ML INJ IVP PRN (07:42)
--- NOTE | 2016-06-15 08:30 | General Surgery Progress Note ---
<Samuel Corbett - Last Filed: 06/15/16 08:57> Date of Encounter: 06/15/16 Time of Encounter: 08:10 - Assessment and Plan (1) Acute cholecystitis Current Visit: Yes Status: Resolved Post op day #1 status post laparoscopic cholecystectomy with cholangiogram. The patient is having positive bowel sounds and + flatus. NPO for ERCP today. Continue pain control. Encouraged incentive spirometer use. SCDs for DVT prophylaxis. (2) Elevated liver enzymes Current Visit: Yes Status: Acute Post op day #1 status post laparoscopic cholecystectomy with cholangiogram. Continue to follow with labs. (trending downward) (3) Hyperbilirubinemia Current Visit: Yes Status: Acute Elevated bilirubin at 3.[address] Tenorio who recommended ERCP today. (4) Kidney stone Current Visit: Yes Status: Resolved Patient reported passing kidney stone on 06/13 Urine culture did not demonstrate any growth (5) GERD (gastroesophageal reflux disease) Current Visit: Yes Status: Chronic Continue omeprazole daily. Qualifiers: Esophagitis presence: esophagitis presence not specified Qualified Code(s) : K21.9 - Gastro-esophageal reflux disease without esophagitis (6) Hypothyroidism Current Visit: Yes Status: Chronic Continue home dose of synthroid. Qualifiers: Hypothyroidism type: unspecified Qualified Code(s): E03.9 - Hypothyroidism , unspecified (7) DVT prophylaxis Current Visit: Yes Status: Acute Patient is on SCDs. Subjective Patient reports: no new complaints, still having pain, voiding w/o difficulty, flatus, no bowel movement, afebrile Narrative: The patient reports some mild discomfort after his surgery yesterday, but says overall he is feeling quite well. He denies any nausea or vomiting. Objective Vital Signs - Last 8 Hours Temp Pulse Resp BP Pulse Ox 06/15/16 07:37 98.7 F 83 16 101/64 96 06/15/16 03:35 98.9 F 74 18 105/64 97 Intake and Output 06/14/16 06/15/16 06/15/16 23:59 07:59 15:59 Intake Total 1000 / 1000 0 / 0 Output Total 500 / 500 Balance 990 / 990 -500 / -500 Intake: IV Fluids 1000 / 1000 0.9 % Sodium Chloride 1, 1000 / 1000 000 ML @ 120 mls/hr IVC . Q8H20M [facility] Rx#:[id number] Oral 0 / 0 Output: Urine 500 / 500 Estimated Blood Loss Other: Weight 80.2 kg Blood Glucose* 88 Patient Weight 06/15/16 23:59 Weight 80.2 kg - General physical appearance well developed, well nourished, no distress - Eyes normal ocular movement - ENT normal mucosa, atraumatic, normocephalic - Neck Neck exam: trachea midline - Respiratory normal respiratory effort, clear to auscultation - Cardiovascular Cardiovascular exam: Present: RRR - Abdomen Abdomen: Present: bowel sounds present, soft, tender (expected post surgical tenderness) - Incision Incision: Present: clean and dry, intact - Integumentary no rash - Neurologic CN 2-12 grossly intact - Musculoskeletal normal posture - Psychiatric oriented to time, oriented to person, oriented to place, speech is normal, memory intact - Labs 06/15/16 04:01 06/15/16 04:01 Diabetes panel 06/15/16 06/15/16 Range/Units 04:01 04:01 Sodium 141 (136-145) mEq/L Potassium 3.8 (3.5-4.5) mEq/L Chloride 108 (98-109) mEq/L Carbon Dioxide 23 (19-29) mEq/L BUN 11 (8-26) mg/dL Creatinine 0.78 (0.72-1.25) mg/dL Glucose 80 (70-99) mg/dL Calcium 8.4 L (8.6-10.8) mg/dL AST 182 H (5-34) Units/L ALT 467 H (0-55) Units/L Alkaline Phosphatase 165 H (38-126) Units/L Albumin 3.4 L (3.5-5.0) g/dL Calcium panel 06/15/16 06/15/16 Range/Units 04:01 04:01 Calcium 8.4 L (8.6-10.8) mg/dL Albumin 3.4 L (3.5-5.0) g/dL Pituitary panel 06/15/16 Range/Units 04:01 Sodium 141 (136-145) mEq/L Potassium 3.8 (3.5-4.5) mEq/L Chloride 108 (98-109) mEq/L Carbon Dioxide 23 (19-29) mEq/L BUN 11 (8-26) mg/dL Creatinine 0.78 (0.72-1.25) mg/dL Glucose 80 (70-99) mg/dL Calcium 8.4 L (8.6-10.8) mg/dL Adrenal panel 06/15/16 06/15/16 Range/Units 04:01 04:01 Sodium 141 (136-145) mEq/L Potassium 3.8 (3.5-4.5) mEq/L Chloride 108 (98-109) mEq/L Carbon Dioxide 23 (19-29) mEq/L BUN 11 (8-26) mg/dL Creatinine 0.78 (0.72-1.25) mg/dL Glucose 80 (70-99) mg/dL Calcium 8.4 L (8.6-10.8) mg/dL Total Bilirubin 3.2 H D (0.2-1.2) mg/dL AST 182 H (5-34) Units/L ALT 467 H (0-55) Units/L Alkaline Phosphatase 165 H (38-126) Units/L Albumin 3.4 L (3.5-5.0) g/dL - VTE Documentation of Mechanical Device: Intermittent pneumatic compression device Consult Discharge Plan - Plan Referrals: Feliberto Zhang DO [Primary Care Provider] - - Attending Attestation I examined this patient and my medical decision-making was reviewed with the ASSESSMENT TECHNICIAN/PA/Advanced Practice Nurse/Resident Physician. I agree with the documented findings, disposition and treatment plan as described except to the extent set forth below. <Raissa Farmer - Last Filed: 06/15/16 16:43> Time of Encounter: 12:30 - Assessment and Plan (1) Elevated liver enzymes Current Visit: Yes Status: Acute discussed labs with Dr Tenorio (resident did) and that cholangiograms during OR showed a possible stone at ampulla, he plans on ERCP later today (2) GERD (gastroesophageal reflux disease) Current Visit: Yes Status: Chronic Qualifiers: Esophagitis presence: esophagitis presence not specified Qualified Code(s) : K21.9 - Gastro-esophageal reflux disease without esophagitis (3) Hypothyroidism Current Visit: Yes Status: Chronic Qualifiers: Hypothyroidism type: unspecified Qualified Code(s): E03.9 - Hypothyroidism , unspecified (4) Acute cholecystitis Current Visit: Yes Status: Resolved continue ivf hydration while npo plan ERCP with GI today prn pain control ambulate (5) Kidney stone Current Visit: Yes Status: Resolved Subjective Narrative: pain well controlled no nausea, tolerating diet Objective Vital Signs - Last 8 Hours Temp Pulse Resp BP Pulse Ox 06/15/16 15:26 98.8 F 7 14 127/78 97 06/15/16 15:16 98.8 F 74 14 124/79 97 06/15/16 15:06 98.8 F 79 14 129/76 97 06/15/16 14:56 98.8 F 94 14 124/72 97 06/15/16 13:35 97.7 F 69 16 120/67 97 06/15/16 11:11 98.7 F 75 18 112/64 96 Intake and Output 06/15/16 06/15/16 06/15/16 07:59 15:59 23:59 Intake Total 0 / 0 1120 / 1120 Output Total 500 / 500 Balance -500 / -500 1120 / 1120 Intake: IV Fluids 1000 / 1000 Lactated Ringers 1,000 ML 1000 / 1000 @ 50 mls/hr IVC .Q20H [facility] Rx#:[id number] Oral 0 / 0 120 / 120 Output: Urine 500 / 500 Other: Meal Breakfast # Voids 1 Weight 80.2 kg Blood Glucose* 122 Patient Weight 06/15/16 23:59 Weight 80.2 kg - General physical appearance well developed, well nourished, no distress - Eyes PERRL, normal ocular movement - Neck Neck exam: trachea midline - Respiratory clear to auscultation - Cardiovascular Cardiovascular exam: Present: RRR - Abdomen Abdomen: Present: bowel sounds present, soft, tender - Incision Incision: Present: clean and dry, intact - Integumentary no rash - Neurologic CN 2-12 grossly intact - Musculoskeletal normal posture - Labs 06/15/16 04:01 06/15/16 04:01 Short CBC 06/15/16 Range/Units 04:01 WBC 4.9 (4.3-11.1) K/mcL Hgb 12.9 (12.9-16.9) g/dL Hct 37.5 (37.5-50.1) % Plt Count 175 (140-400) K/mcL Neutrophils # 3.5 (1.6-8.9) K/mcL BMP 06/15/16 Range/Units 04:01 Sodium 141 (136-145) mEq/L Potassium 3.8 (3.5-4.5) mEq/L Chloride 108 (98-109) mEq/L Carbon Dioxide 23 (19-29) mEq/L BUN 11 (8-26) mg/dL Creatinine 0.78 (0.72-1.25) mg/dL Glucose 80 (70-99) mg/dL Calcium 8.4 L (8.6-10.8) mg/dL Liver Function 06/15/16 Range/Units 04:01 Total Bilirubin 3.2 H D (0.2-1.2) mg/dL Direct Bilirubin 2.0 H (0.0-0.5) mg/dL AST 182 H (5-34) Units/L ALT 467 H (0-55) Units/L Alkaline Phosphatase 165 H (38-126) Units/L Albumin 3.4 L (3.5-5.0) g/dL Vital Signs Temp Pulse Resp BP Pulse Ox 06/15/16 15:26 98.8 F 7 14 127/78 97 06/15/16 15:16 98.8 F 74 14 124/79 97 06/15/16 15:06 98.8 F 79 14 129/76 97 06/15/16 14:56 98.8 F 94 14 124/72 97 06/15/16 13:35 97.7 F 69 16 120/67 97 06/15/16 11:11 98.7 F 75 18 112/64 96 06/15/16 07:37 98.7 F 83 16 101/64 96 06/15/16 03:35 98.9 F 74 18 105/64 97 06/14/16 22:25 98.0 F 89 16 104/69 99 06/14/16 21:25 98.7 F 80 16 106/60 99 06/14/16 20:55 98.1 F 75 15 117/64 98 06/14/16 20:25 97.5 F L 79 15 112/73 99 06/14/16 20:10 97.6 F 73 16 117/68 99 06/14/16 20:00 71 16 115/67 97 06/14/16 19:50 71 16 112/64 97 06/14/16 19:40 97.5 F L 72 16 105/63 97 Intake and Output 06/15/16 06/15/16 06/15/16 07:59 15:59 23:59 Intake Total 0 / 0 1120 / 1120 Output Total 500 / 500 Balance -500 / -500 1120 / 1120 Intake: IV Fluids 1000 / 1000 Lactated Ringers 1,000 ML 1000 / 1000 @ 50 mls/hr IVC .Q20H [facility] Rx#:[id number] Oral 0 / 0 120 / 120 Output: Urine 500 / 500 Other: Meal Breakfast # Voids 1 Weight 80.2 kg Blood Glucose* 122 Patient Weight 06/15/16 23:59 Weight 80.2 kg
[2016-06-15] MEDS ORDERED: *HR* FentaNYL (PF) 100 MCG/2 ML VIAL ONE (13:52)
--- NOTE | 2016-06-15 13:54 | Anesthesia Evaluation PreOp ---
Date of Encounter: 06/15/16 Time of Encounter: 13:53 - Past History Planned Operation: ERCP Cardiac History: Denies any Significant Hx Pulmonary History: Denies Any Significant HX [employer] History: Denies Any Significant HX Other Medical History: Thyroid, GERD Anesthesia History: No Prior Anesthetic Complications Alcohol Use: none Drug use: none Medications and Allergies Levothyroxine Sodium [Levoxyl] 150 mcg PO DAILY 06/12/16 [History] Ranitidine HCl [Zantac] 150 mg PO BID 06/12/16 [History] Allergies No Known Allergies Allergy (Verified 06/13/16 07:47) - Meds/Allergy Pre-op Review Medications Reviewed: Yes Allergies Reviewed: Yes Beta Blockers on Current Med List: No Anesthesia Results - Labs 06/15/16 04:01 06/15/16 04:01 Anesthesia Exam Last Vital Signs Temp 97.7 F 06/15/16 13:35 Pulse 69 06/15/16 13:35 Resp 16 06/15/16 13:35 BP 120/67 06/15/16 13:35 Pulse Ox 97 06/15/16 13:35 Weight: 80 kg NPO (# of Hours): >> 8 hrs - HEENT Pupil (Motor): Pupils equal, EOMI Mallampati: II Teeth: Normal Oral Opening: Greater than 3 - [employer]ING [employer] LOC: Oriented [employer] Motor: Normal RUE, Normal LUE, Normal RLE, Normal LLE, Normal Face [employer] Sensory: Normal: RUE, LUE, RLE, LLE, Face - Cardiac Rhythm: Regular Murmur: None - Pulmonary Breath Sounds: bilateral Clear Respiratory Effort: Symmetrical Anesthesia Assess/Plan ASA Score: 2 Modified Clemons Scale for Level of Consciousness: Cooperative, oriented, and tranquil Anesthetic Plan: General Monitoring Plan: Standard Monitors Recovery Plan: PACU
[2016-06-15] MEDS ORDERED: Indomethacin 50 MG SUPP.RECT RC ONE (15:00)
--- NOTE | 2016-06-15 15:10 | Anesthesia Evaluation Post Op ---
Date of Encounter: 06/15/16 Time of Encounter: 15:09 - Vital Signs Vital Signs: Vital Signs/O2 Sat/Glucose, Most Recent Temp Pulse Resp BP Pulse Ox 98.8 F 94 14 124/72 97 06/15/16 14:56 06/15/16 14:56 06/15/16 14:56 06/15/16 14:56 06/15/16 14:56 Blood Glucose* 122 - Lungs Lungs: Clear Ascult./Percussion - Airway Airway: Non-obstructed - Cardiovascular Regular Rate, Baseline Rhythm - Mental Status Mental Status: Asleep with brisk response to light stimulation - Pain Pain Scale: 0 Pain Scale used: Numeric (1 - 10) - Nausea Vomiting Nausea Vomiting: Not Present - Hydration Hydration: NPO, Has not voided Notes: 06/15/16 15:10 naac - Discharge PostOp Status: Transfer Patient to floor
[2016-06-15] MEDS ORDERED: Ringers Solution, Lactated 1,000 ML IVC SCH (15:15)
[2016-06-16] MEDS: 0.9 % Sodium Chloride 1,000 ML IVC SCH ×4 (04:35→09:08)
[2016-06-16 10:16] LABS: Albumin 3.4 g/dL (3.5-5.0); Albumin/Globulin Ratio 1.3 (1.1-2.2); Bilirubin,Indirect 0.6 mg/dL (0.0-1.2); Globulin 2.6 g/dL (2.4-3.5)
[2016-06-16 10:17] LABS: Bilirubin,Direct 0.8 mg/dL (0.0-0.5); Bilirubin,Total 1.4 mg/dL (0.2-1.2)
[2016-06-16 10:39] VITALS: BP 101/62
--- NOTE | 2016-06-16 10:43 | Discharge Summary ---
<DarianRaissa Mistry - Last Filed: 06/16/16 10:41> Date of Encounter: 06/16/16 Time of Encounter: 11:30 - Discharge Diagnosis (1) Elevated liver enzymes Priority: Primary Status: Acute (2) GERD (gastroesophageal reflux disease) Priority: Secondary Status: Chronic Qualifiers: Esophagitis presence: esophagitis presence not specified Qualified Code(s) : K21.9 - Gastro-esophageal reflux disease without esophagitis (3) Hypothyroidism Priority: Secondary Status: Chronic Qualifiers: Hypothyroidism type: unspecified Qualified Code(s): E03.9 - Hypothyroidism , unspecified (4) Acute cholecystitis Priority: Primary Status: Resolved (5) Kidney stone Priority: Secondary Status: Resolved - Discharge Medications Prescriptions: OxyCODONE/APAP 5/325 [Percocet 5/325 MG] 1 each PO Q4HR PRN #30 tablet PRN Reason: Pain Docusate [Colace] 100 mg PO BID #30 capsule Home Medications: Levothyroxine Sodium [Levoxyl] 150 mcg PO DAILY 06/12/16 [History] Ranitidine HCl [Zantac] 150 mg PO BID 06/12/16 [History] Docusate [Colace] 100 mg PO BID #30 capsule 06/16/16 [Rx] OxyCODONE/APAP 5/325 [Percocet 5/325 MG] 1 each PO Q4HR PRN #30 tablet 06/16/16 [Rx] Allergies/Adverse Reactions: Allergies No Known Allergies Allergy (Verified 06/13/16 07:47) General Surgery Exam Initial Vital Signs Temp Pulse Resp BP Pulse Ox 98.1 F 76 18 127/77 99 06/12/16 22:21 06/12/16 22:21 06/12/16 22:21 06/12/16 22:21 06/12/16 22:21 - General physical appearance well developed, well nourished, no distress - Eyes PERRL, normal ocular movement - ENT normal mucosa, normocephalic - Neck trachea midline - Respiratory normal expansion, clear to auscultation - Cardiovascular Cardiovascular exam: Present: RRR - Abdomen Abdomen general surgery: Present: bowel sounds present, soft, tender (expected post op tenderness) - Incision Incision: Present: clean and dry, intact - Integumentary Integumentary general surgery: Present: warm and dry, no abnormal pigmentation - Neurologic Present: CN 2-12 grossly intact - Musculoskeletal Present: normal gait, normal posture - Psychiatric Psychiatric general surgery: Present: A&Ox3, speech is normal Date of admission: 06/13/16 02:30 Primary care physician: Feliberto Zhang DO Consults: 06/13/16 11:27 Consult to Gastroenterology [CONS] Routine Consulting Provider: Gastroenterology Marilu Reason for Consult: elevated liver function tests, hyperbilirubinemia Time Notified: 11:28 Call Completed: Yes Discharging clinician: Raissa Farmer - Patient Status Disposition: Home, Self-Care Condition: Good Overall status at discharge: patient is progressing back to baseline - Discharge Instructions Follow Up With: Cortney Goldberg CNP [Advanced Practice Nurse] - Feliberto Zhang DO [Primary Care Provider] - Raissa Farmer MD [Partnered Physician] - 06/29/16 8:55 am (surgery follow-up ) Forms: Work/School Release Additional Instructions: No lifting more than 20 pounds for 2 weeks. Okay to take a shower in 24 hours. No tub baths or pools for 1 week. Okay to ride in the car wearing a seatbelt and climb steps. No driving until off narcotics for 24 hours and able to react safely Remove Steri-Strips in 1 week. - Diet and Activity Activity: increase activity as tolerated Diet: advance to your usual diet - Hospital Course Hospital course: Mr. Sue is a 55 year old male who was admitted to the hospital with nausea vomiting and abdominal pain. He was found to have acute cholecystitis and elevated LFTs. MRCP did not demonstrate any common bile duct stone. Patient was taken to the OR for a laparoscopic cholecystectomy with cholangiograms. It was suspected he may have a distal common bile duct stone at the ampulla. GI then performed an ERCP and removed sludge and a common bile duct stone. Patient 's LFTs are trending down. He is discharged home in stable condition. He is tolerating a diet and his pain is controlled with when necessary medication. Additionally he was diagnosed with a kidney stone which he passed while in the hospital. - Time Spent with Patient Total time spent providing and/or coordinating discharge services: Labs on day of discharge: Labs from last 24 hours 06/16/16 06/15/16 06/15/16 09:50 17:59 11:15 POC Glucose 133 H 122 H Total Bilirubin 1.4 H D Direct Bilirubin 0.8 H Indirect Bilirubin 0.6 AST 75 H ALT 348 H Alkaline Phosphatase 179 H Serum Total Protein 6.0 Albumin 3.4 L Globulin 2.6 Albumin/Globulin Ratio 1.3 Lipase 34 - Impressions ITS Impressions Abdomen MRI 06/13/16 08:06 IMPRESSION: 1. Cholelithiasis with mild pericholecystic edema. If there is concern for acute cholecystitis, suggest further evaluation with HIDA scan. 2. No intrahepatic or extrahepatic biliary ductal dilatation. No definite intraductal filling defect. Linear artifact along the distal common duct corresponds to calcification on CT which may be along the bile duct. D/ / 06/13/2016 11:00:26 Jeremías Cowart MD / [email or web address] Interpreting Provider: Jeremías Cowart MD Gallbladder Ultrasound 06/13/16 14:21 IMPRESSION: Cholelithiasis with pericholecystic fluid. Absent sonographic Sterling sign. If there is continued clinical concern, hepatobiliary scan is recommended. D/ / 06/13/2016 15:30:47 Phillip Alvarado MD / [facility] Interpreting Provider: Phillip Alvarado MD Abdomen/Pelvis CT 06/13/16 23:21 IMPRESSION: 1. Cholelithiasis with findings suggesting acute cholecystitis. There is either choledocholithiasis or calcifications have developed adjacent to the common duct. There is no common duct dilation. 2. Tiny stone in the left kidney without hydronephrosis. There is also a small stone in the urinary bladder. D/ / Jerry Montoya MD / Jerry Montoya MD Interpreting Provider: Jerry Montoya MD Cholangiogram,Operative 06/14/16 00:00 IMPRESSION: Filling defect in the distal common bile duct worrisome for a retained calculus. Please see the intraoperative note for complete details . D/ / 06/14/2016 19:36:26 Phillip Alvarado MD / [email or web address] Interpreting Provider: Phillip Alvarado MD Cath/Invasive Procedure 06/15/16 00:00 IMPRESSION: Intraprocedural fluoroscopic spot images as above. See separate procedure report for more information. D/ / Eagle Winslow MD / Eagle Winslow MD Interpreting Provider: Eagle Winslow MD <Enedelia Goldbergnikrystal Blackwood - Last Filed: 06/16/16 11:35> - Discharge Diagnosis (1) Acute cholecystitis Priority: Primary Status: Resolved (2) Hyperbilirubinemia Priority: Secondary Status: Acute Comments: Resolving (3) Elevated liver enzymes Priority: Secondary Status: Acute Comments: Resolving (4) GERD (gastroesophageal reflux disease) Priority: Secondary Status: Chronic Qualifiers: Esophagitis presence: esophagitis presence not specified Qualified Code(s) : K21.9 - Gastro-esophageal reflux disease without esophagitis (5) Hypothyroidism Priority: Secondary Status: Chronic Qualifiers: Hypothyroidism type: unspecified Qualified Code(s): E03.9 - Hypothyroidism , unspecified (6) Kidney stone Priority: Secondary Status: Resolved General Surgery Exam Initial Vital Signs Temp Pulse Resp BP Pulse Ox 98.1 F 76 18 127/77 99 06/12/16 22:21 06/12/16 22:21 06/12/16 22:21 06/12/16 22:21 06/12/16 22:21 - General physical appearance well developed, well nourished, no distress, no pain - Eyes normal ocular movement - ENT normal mucosa, normocephalic - Neck trachea midline - Respiratory normal expansion, normal respiratory effort, clear to auscultation - Cardiovascular Cardiovascular exam: Present: RRR, 15, 16 - Abdomen Abdomen general surgery: Present: bowel sounds present, soft, tender - Incision Incision: Present: clean and dry, intact - Integumentary Integumentary general surgery: Present: warm and dry - Neurologic Present: CN 2-12 grossly intact - Musculoskeletal Present: normal gait - Psychiatric Psychiatric general surgery: Present: appropriate, oriented to person, oriented to place, oriented to time, speech is normal, memory intact Date of admission: 06/13/16 02:30 Primary care physician: Feliberto Zhang DO Consults: 06/13/16 11:27 Consult to Gastroenterology [CONS] Routine Consulting Provider: Gastroenterology Marilu Reason for Consult: elevated liver function tests, hyperbilirubinemia Time Notified: 11:28 Call Completed: Yes Anticipated date of discharge: 06/16/16 - Hospital Course Hospital course: Mr. Sue is a 55 year old male - Time Spent with Patient Total time spent providing and/or coordinating discharge services: Less than 30 minutes Labs on day of discharge: Labs from last 24 hours 06/16/16 06/15/16 06/15/16 09:50 17:59 11:15 POC Glucose 133 H 122 H Total Bilirubin 1.4 H D Direct Bilirubin 0.8 H Indirect Bilirubin 0.6 AST 75 H ALT 348 H Alkaline Phosphatase 179 H Serum Total Protein 6.0 Albumin 3.4 L Globulin 2.6 Albumin/Globulin Ratio 1.3 Lipase 34 - Impressions ITS Impressions Abdomen MRI 06/13/16 08:06 IMPRESSION: 1. Cholelithiasis with mild pericholecystic edema. If there is concern for acute cholecystitis, suggest further evaluation with HIDA scan. 2. No intrahepatic or extrahepatic biliary ductal dilatation. No definite intraductal filling defect. Linear artifact along the distal common duct corresponds to calcification on CT which may be along the bile duct. D/ / 06/13/2016 11:00:26 Jeremías Cowart MD / [email or web address] Interpreting Provider: Jeremías Cowart MD Gallbladder Ultrasound 06/13/16 14:21 IMPRESSION: Cholelithiasis with pericholecystic fluid. Absent sonographic Sterling sign. If there is continued clinical concern, hepatobiliary scan is recommended. D/ / 06/13/2016 15:30:47 Phillip Alvarado MD / [email or web address] Interpreting Provider: Phillip Alvarado MD Abdomen/Pelvis CT 06/13/16 23:21 IMPRESSION: 1. Cholelithiasis with findings suggesting acute cholecystitis. There is either choledocholithiasis or calcifications have developed adjacent to the common duct. There is no common duct dilation. 2. Tiny stone in the left kidney without hydronephrosis. There is also a small stone in the urinary bladder. D/ / Jerry Montoya MD / Jerry Montoya MD Interpreting Provider: Jerry Montoya MD Cholangiogram,Operative 06/14/16 00:00 IMPRESSION: Filling defect in the distal common bile duct worrisome for a retained calculus. Please see the intraoperative note for complete details . D/ / 06/14/2016 19:36:26 Phillip Alvarado MD / [email or web address] Interpreting Provider: Phillip Alvarado MD Cath/Invasive Procedure 06/15/16 00:00 IMPRESSION: Intraprocedural fluoroscopic spot images as above. See separate procedure report for more information. D/ / Eagle Winslow MD / Eagle Winslow MD Interpreting Provider: Eagle Winslow MD - Attending Attestation I examined this patient and my medical decision-making was reviewed with the INTERACTIVE DEVELOPER/PA/Advanced Practice Nurse/Resident Physician. I agree with the documented findings, disposition and treatment plan as described except to the extent set forth below.
[2016-06-16] MEDS ORDERED: *HR* Succinylcholine 200 MG/10 ML VIAL IVP ONE (12:45)
[2016-06-16] MEDS ORDERED: Lidocaine -MPF 2% 5 ML VIAL INFILT ONE (12:45)
[2016-06-16] MEDS ORDERED: *HR* Propofol 200 MG/20 ML VIAL IVP ONE (12:45)
== END 2016-06-16 12:46 | disposition home or self-care (01) ==
LOC: 3NENU 21:53 → EMEROO 21:53 → 3NENU 06-13 04:03 → 3ANU 06-13 07:23
PROVIDERS: ADMIT Surgery; ATTEND Surgery